=== PATIENT | male | born 1950 | race Caucasian/White ===

== ENCOUNTER 2019-10-10 14:35 | Emergency (ER) | payer MEDICARE, OTHER ==
[~2019-10-10] VITALS: Ht 182.8 cm; Wt 113.6 kg
[2019-10-10] MEDS ORDERED: ONDANSETRON 4 MG/2 ML (SDV) Z0FRAN ONE (14:46)
[2019-10-10] MEDS ORDERED: morphine INJ 10 MG/ML 1ML (SYR OR VIAL) ONE (14:46)
[2019-10-10] MEDS ORDERED: NS IV 1000 ML 1,000 ML ONE (14:46)
[2019-10-10] MEDS ORDERED: morphine INJ 10 MG/ML 1ML (SYR OR VIAL) IVP STA (14:52)
--- NOTE | 2019-10-10 14:52 | ED Abdominal Pain ---
General Chief Complaint: Abdominal/GI Problems Stated Complaint: LRQ PAIN; NAUSEA Source of Information: Patient Exam Limitations: No Limitations History of Present Illness Date Seen by Provider: Oct 10, 2019 Time Seen by Provider: 14:40 Initial Comments The patient is a 68-year-old male presents for evaluation of right lower quadrant abdominal pain as well as some right flank pain which started a few hours ago. He states that when the pain began he became nauseous and had several episodes of vomiting and felt somewhat diaphoretic. He denies any history of abdominal surgeries or kidney stones. He is alert and oriented 4, appears uncomfortable, but is in no distress at this time. He denies fevers or chills, hematemesis, urinary complaints, chest pain or shortness of breath, lightheadedness, or syncope. Timing/Duration: 1-3 Hours Severity/Quality: Severe Location: RLQ, Flank (right) Radiation: No Radiation Activities at Onset: None Associated Symptoms: Nausea/Vomiting Allergies and Home Medications Allergies Coded Allergies: No Known Drug Allergies (Unverified , 10/10/19) Patient Home Medication List Home Medication List Reviewed: Yes Review of Systems Review of Systems Constitutional: no symptoms reported EENTM: No Symptoms Reported Respiratory: No Symptoms Reported Cardiovascular: No Symptoms Reported Gastrointestinal: Abdominal Pain, Nausea, Vomiting Genitourinary: No Symptoms Reported Musculoskeletal: no symptoms reported Skin: no symptoms reported Psychiatric/Neurological: No Symptoms Reported Endocrine: No Symptoms Reported Hematologic/Lymphatic: No Symptoms Reported All Other Systems Reviewed Negative Unless Noted: Yes Past Xopzjzt-Asbbhd-Hjfyqc Hx Past Med/Social Hx: Reviewed Nursing Past Med/Soc Hx Patient Social History Recent Foreign Travel: No Contact w/Someone Who Travel: No Physical Exam Vital Signs Vital Signs - First Documented 10/10/19 14:41 Temp 36.0 Pulse 58 Resp 20 B/P (MAP) 156/79 (104) Pulse Ox 96 O2 Delivery Room Air Capillary Refill : Height/Weight/BMI Height: '" Weight: lbs. oz. 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, no motor/sensory deficits, alert, normal mood/affect, oriented x 3 Skin: normal color, warm/dry Progress/Results/Core Measures Results/Orders Lab Results Laboratory Tests Test 10/10/19 14:36 10/10/19 14:40 Range/Units Urine Color YELLOW Urine Clarity CLEAR Urine pH 5.0 5-9 Urine Specific [place] >=1.030 1.016-1.022 Urine Protein NEGATIVE NEGATIVE Urine Glucose (UA) 1+ H NEGATIVE Urine Ketones NEGATIVE NEGATIVE Urine Nitrite NEGATIVE NEGATIVE Urine Bilirubin NEGATIVE NEGATIVE Urine Urobilinogen 0.2 < = 1.0 MG/DL Urine Leukocyte Esterase NEGATIVE NEGATIVE Urine RBC (Auto) 3+ H NEGATIVE Urine RBC 10-25 H /HPF Urine WBC RARE /HPF Urine Squamous Epithelial Cells RARE /HPF Urine Crystals NONE /LPF Urine Bacteria NEGATIVE /HPF Urine Casts NONE /LPF Urine Mucus NONE /LPF Urine Culture Indicated NO White Blood Count 10.2 4.3-11.0 10^3/uL Red Blood Count 5.03 4.35-5.85 10^6/uL Hemoglobin 14.4 13.3-17.7 G/DL Hematocrit 43 40-54 % Mean Corpuscular Volume 85 80-99 FL Mean Corpuscular Hemoglobin 29 25-34 PG Mean Corpuscular Hemoglobin Concent 34 32-36 G/DL Red Cell Distribution Width 12.6 10.0-14.5 % Platelet Count 223 130-400 10^3/uL Mean Platelet Volume 10.1 7.4-10.4 FL Neutrophils (%) (Auto) 66 42-75 % Lymphocytes (%) (Auto) 24 12-44 % Monocytes (%) (Auto) 8 0-12 % Eosinophils (%) (Auto) 1 0-10 % Basophils (%) (Auto) 1 0-10 % Neutrophils # (Auto) 6.7 1.8-7.8 X 10^3 Lymphocytes # (Auto) 2.4 1.0-4.0 X 10^3 Monocytes # (Auto) 0.8 0.0-1.0 X 10^3 Eosinophils # (Auto) 0.1 0.0-0.3 10^3/uL Basophils # (Auto) 0.1 0.0-0.1 10^3/uL Sodium Level 140 135-145 MMOL/L Potassium Level 4.2 3.6-5.0 MMOL/L Chloride Level 101 98-107 MMOL/L Carbon Dioxide Level 23 21-32 MMOL/L Anion Gap 16 H 5-14 MMOL/L Blood Urea Nitrogen 21 H 7-18 MG/DL Creatinine 1.17 0.60-1.30 MG/DL Estimat Glomerular Filtration Rate > 60 BUN/Creatinine Ratio 18 Glucose Level 213 H 70-105 MG/DL Calcium Level 9.5 8.5-10.1 MG/DL Corrected Calcium 9.1 8.5-10.1 MG/DL Total Bilirubin 0.5 0.1-1.0 MG/DL Aspartate Amino Transf (AST/SGOT) 19 5-34 U/L Alanine Aminotransferase (ALT/SGPT) 19 0-55 U/L Alkaline Phosphatase 76 40-136 U/L Total Protein 7.2 6.4-8.2 GM/DL Albumin 4.5 3.2-4.5 GM/DL Amylase Level 34 25-125 U/L Lipase 33 8-78 U/L My Orders Orders - JESSICA LEROY DO Comprehensive Metabolic Panel (10/10/19 14:36) Lipase (10/10/19 14:36) Amylase (10/10/19 14:36) Ua Culture If Indicated (10/10/19 14:36) Ed Iv/Invasive Line Start (10/10/19 14:36) Cbc With Automated Diff (10/10/19 14:36) Ondansetron Injection (Zofran Injectio (10/10/19 14:46) Ns Iv 1000 Ml (Sodium Chloride 0.9%) (10/10/19 14:46) Morphine Injection (Morphine Injection (10/10/19 14:52) Ondansetron Injection (Zofran Injectio (10/10/19 15:00) Ns Iv 1000 Ml (Sodium Chloride 0.9%) (10/10/19 15:00) Morphine Injection (Morphine Injection (10/10/19 14:46) Iohexol Injection (Omnipaque 350 Mg/Ml 1 (10/10/19 15:30) Received Contrast (Hold Metformin- Contr (10/10/19 15:30) Sodium Chloride Flush (Catheter Flush Sy (10/10/19 15:30) Ns (Ivpb) (Sodium Chloride 0.9% Ivpb Bag (10/10/19 15:30) Ct Abdomen/Pelvis W Wo (10/10/19 15:31) Ketorolac Injection (Toradol Injection) (10/10/19 16:15) Fentanyl Injection (Sublimaze Injection (10/10/19 16:15) Ketorolac Injection (Toradol Injection) (10/10/19 15:55) Fentanyl Injection (Sublimaze Injection (10/10/19 15:55) Medications Given in ED Current Medications Medications Dose Ordered Sig/Olivia Route Start Time Stop Time Status Last Admin Dose Admin Fentanyl Citrate 50 mcg ONCE ONCE IVP 10/10/19 16:15 10/10/19 16:16 DC 10/10/19 16:42 50 MCG Iohexol 100 ml ONCE ONCE IV 10/10/19 15:30 10/10/19 15:31 DC 10/10/19 15:52 100 ML Ketorolac Tromethamine 30 mg ONCE ONCE IVP 10/10/19 16:15 10/10/19 16:16 DC 10/10/19 16:42 30 MG Ondansetron HCl 4 mg ONCE ONCE IVP 10/10/19 15:00 10/10/19 15:01 DC 10/10/19 14:56 4 MG Sodium Chloride 10 ml NEEDED PRN IV 10/10/19 15:30 10/10/19 15:52 10 ML Sodium Chloride 100 ml ONCE ONCE IV 10/10/19 15:30 10/10/19 15:31 DC 10/10/19 15:52 100 ML Vital Signs/I&O 10/10/19 14:41 Temp 36.0 Pulse 58 Resp 20 B/P (MAP) 156/79 (104) Pulse Ox 96 O2 Delivery Room Air Progress Progress Note : Progress Note @5344 - Case discussed with Dr. Baez (urology) who states that the patient follow-up in his office tomorrow at 11 AM and to remain nothing by mouth after midnight tonight. A KUB will be obtained prior to discharge as this was re quested by . The patient expresses verbal understanding and agreement with this plan and is stable for discharge at this time. Diagnostic Imaging Diagonstic Imaging: CT Comments [facility] [place], [place] NAME: FRANCISCA BERNARD [facility] REC#: [id number] PT STATUS: REG ER : 1950 PHYSICIAN: JESSICA LEROY DO ADMIT DATE: 10/10/19/ER FS Draft Date of Exam:10/10/19 CT ABDOMEN/PELVIS W WO EXAMINATION: CT abdomen and pelvis with and without intravenous contrast. TECHNIQUE: Precontrast acquisitions were acquired through the abdomen and pelvis. Multiple contiguous axial images were obtained through the abdomen and pelvis after the administration of intravenous contrast. All CT scans use one or more of the following dose optimizing techniques: automated exposure control, MA and/or KvP adjustment based on patient size and exam type or iterative reconstruction. HISTORY: Right lower quadrant pain and hematuria. COMPARISON: None available. FINDINGS: Limited views of the lower thorax are unremarkable. Multiple cysts are present in the liver. There are no suspicious liver lesions. There is no biliary ductal dilation. Gallbladder is normal. Pancreas is normal. Spleen is normal. Adrenal glands are normal. There is a small duodenal diverticulum. There is a small hiatal hernia. There is a 7 mm obstructing stone at the right ureteropelvic junction resulting in moderate right-sided hydroureteronephrosis. There is also fairly significant perinephric stranding on the right. There are tiny left-sided stones measuring 1-2 mm. Visualized bowel is normal in caliber without obstruction or inflammation. There is diverticulosis without diverticulitis. The appendix is normal. No free fluid or air. No abdominal or pelvic lymphadenopathy. Aorta is normal in caliber without aneurysm. There are no suspicious osseus lesions. IMPRESSION: Obstructing 7 mm stone at the right ureteropelvic junction with moderate right hydronephrosis. Dictated on workstation # [id number] Dict: 10/10/19 1603 Trans: 10/10/19 1632 [facility] [id number] Interpreted by: CHANTEL WATSON MD Electronically signed by: Departure Impression Primary Impression: Urinary tract obstruction due to kidney stone Disposition: 01 HOME, SELF-CARE Condition: Stable Departure-Patient Inst. Decision time for Depature: 16:55 Referrals: BEVERLY BAEZ MD Patient Instructions: Kidney Stones in Adults Add. Discharge Instructions: Follow-up with Dr. Baez from urology tomorrow at 11:00. He will be expecting you. Do not eat or drink anything after midnight tonight. Take the prescribed medicine as directed. Return to the ER immediately for new or worsening symptoms. Scripts Tamsulosin HCl (Flomax) 0.4 Mg Cap 0.4 MG PO DAILY for 5 Days, #5 CAP Prov: JESSICA LEROY DO 10/10/19 Ketorolac Tromethamine (Ketorolac Tromethamine) 10 Mg Tablet 10 MG PO Q6H PRN for PAIN-MODERATE (5-7) for 5 Days, #15 TAB Prov: JESSICA LEROY DO 10/10/19 Hydrocodone/Acetaminophen (Hydrocodone-Acetamin 5-325 mg) 1 Each Tablet 1 EACH PO Q4H for Pain for 5 Days, #15 TAB Prov: JESSICA LEROY DO 10/10/19 JESSICA LEROY DO Oct 10, 2019 14:52
[2019-10-10 14:53] LABS: WHITE BLOOD COUNT 10.2 10^3/uL (4.3-11.0)
[2019-10-10 14:54] LABS: BASOPHILS % (AUTO) 1 % (0-10); EOSINOPHILS % (AUTO) 1 % (0-10); HEMATOCRIT 43 % (40-54); HEMOGLOBIN 14.4 G/DL (13.3-17.7); LYMPHOCYTES # (AUTO) 2.4 X 10^3 (1.0-4.0); LYMPHOCYTES % (AUTO) 24 % (12-44); MEAN CORPUSCULAR HEMOGLOBIN 29 PG (25-34); MEAN CORPUSCULAR HGB CONC 34 G/DL (32-36); MEAN CORPUSCULAR VOLUME 85 FL (80-99); MEAN PLATELET VOLUME 10.1 FL (7.4-10.4); MONOCYTES % (AUTO) 8 % (0-12); NEUTROPHILS # (AUTO) 6.7 X 10^3 (1.8-7.8); NEUTROPHILS % (AUTO) 66 % (42-75); PLATELET COUNT 223 10^3/uL (130-400); RED CELL DISTRIBUTION WIDTH 12.6 % (10.0-14.5)
[2019-10-10 14:55] LABS: BASOPHILS # (AUTO) 0.1 10^3/uL (0.0-0.1); EOSINOPHILS # (AUTO) 0.1 10^3/uL (0.0-0.3); MONOCYTES # (AUTO) 0.8 X 10^3 (0.0-1.0)
[2019-10-10] MEDS ORDERED: ONDANSETRON 4 MG/2 ML (SDV) Z0FRAN IVP ONE (15:00)
[2019-10-10] MEDS ORDERED: NS IV 1000 ML 1,000 ML IV SCH (15:00)
[2019-10-10 15:05] LABS: BACTERIA,URINE NEGATIVE /HPF; BILIRUBIN,URINE NEGATIVE (NEGATIVE); CLARITY,URINE CLEAR; COLOR,URINE YELLOW; GLUCOSE, URINE (UA) 1+ (NEGATIVE); KETONES,URINE NEGATIVE (NEGATIVE); LEUKOCYTE ESTERASE ,URINE NEGATIVE (NEGATIVE); NITRITE,URINE NEGATIVE (NEGATIVE); PROTEIN,URINE NEGATIVE (NEGATIVE); WBC,URINE RARE /HPF
[2019-10-10 15:06] LABS: SQUAMOUS EPITHELIAL CELL,UR RARE /HPF
[2019-10-10 15:13] LABS: BUN/CREATININE RATIO 18; CARBON DIOXIDE 23 MMOL/L (21-32); CHLORIDE 101 MMOL/L (98-107); CREATININE SERUM 1.17 MG/DL (0.60-1.30); GFR ESTIMATED > 60; POTASSIUM 4.2 MMOL/L (3.6-5.0); SODIUM 140 MMOL/L (135-145)
[2019-10-10 15:14] LABS: ALANINE AMINOTRANSFERASE 19 U/L (0-55); ALKALINE PHOSPHATASE 76 U/L (40-136); BILIRUBIN,TOTAL 0.5 MG/DL (0.1-1.0); CALCIUM 9.5 MG/DL (8.5-10.1); GLUCOSE 213 MG/DL (70-105); TOTAL PROTEIN 7.2 GM/DL (6.4-8.2)
[2019-10-10 15:15] LABS: ALBUMIN 4.5 GM/DL (3.2-4.5); AMYLASE 34 U/L (25-125); LIPASE 33 U/L (8-78)
--- OUTSIDE RECORDS SUMMARY | 2019-10-10 15:19 | XMS REPORT | Continuity of Care Document ---
Demographics Preferred Language Unknown Marital Status Unknown Taoist Affiliation Unknown Race Unknown Ethnic Group Unknown Author Organization Unknown Address Unknown Phone Unavailable Allergies There is no data. Medications There is no data. Problems There is no data. Procedures There is no data. Results Test Result Range Complete urinalysis with reflex to cultu re - 10/10/19 14:36 Urine color determination YELLOW NRG Urine clarity determination CLEAR NR G Urine pH measurement by test strip 5.0 5-9 Specific gravity of urine by test strip >= 1.016-1.022 Urine protein assay by test strip, semi-quantitative NEGATIVE NEGATIVE Urine glucose detection by automated test strip 1+ NEGATIVE Erythrocytes detection in urine sediment by light micr oscopy 3+ NEGATIVE Urine ketones detection by automated test strip NE GATIVE NEGATIVE Urine nitrite detection by test strip NEGATIVE NEGATIVE Urine total bilirubin detection by test strip NEGA TIVE NEGATIVE Urine urobilinogen measurement by automated test strip (mass/volume) 0.2 mg/dL < = 1.0 Urine leukocyte esterase detection by dipstick NEG ATIVE NEGATIVE Automated urine sediment erythrocyte cou nt by microscopy (number/high power field) [HPF] NRG Automated urine sediment leukocyte count by microscopy (number/high power field) RARE NRG Bacteria detection in urine sediment by light microsco py NEGATIVE NRG Squamous epithelial cells detection in u rine sediment by light microscopy RARE NRG Crystals detection in urine sediment by light microsco py NONE NRG Casts detection in urine sediment by light microscopy NONE NRG Mucus detection in urine sediment by light microscopy NONE NRG Complete urinalysis with reflex to culture NO NRG Complete blood count (CBC) with automate d white blood cell (WBC) differential - 10/10/19 14:40 Blood leukocytes automated count (number/volume) 10.2 10*3/uL 4.3-11.0 Blood erythrocytes automated count (number/volume) 5.03 10*6/uL 4.35-5.85 Venous blood hemoglobin measurement (mass/volume) 14.4 g/dL 13.3-17.7 Blood hematocrit (volume fraction) 43 % 40-54 Automated erythrocyte mean corpuscular volume 85 [ foz_us] 80-99 Automated erythrocyte mean corpuscular h emoglobin (mass per erythrocyte) 29 pg 25-34 Automated erythrocyte mean corpuscular h emoglobin concentration measurement (mass/volume) 34 g/dL 32-36 Automated erythrocyte distribution width ratio 12. 6 % 10.0- 14.5 Automated blood platelet count (count/volume) 223 10*3/uL 130-400 Automated blood platelet mean volume measurement 10.1 [foz_us] 7.4-10.4 Automated blood neutrophils/100 leukocytes 66 % 42-75 Automated blood lymphocytes/100 leukocytes 24 % 12-44 Blood monocytes/100 leukocytes 8 % 0-12 Automated blood eosinophils/100 leukocytes 1 % 0-10 Automated blood basophils/100 leukocytes 1 % 0-10 Blood neutrophils automated count (number/volume) 6.7 10*3 1.8-7.8 Blood lymphocytes automated count (number/volume) 2.4 10*3 1.0-4.0 Blood monocytes automated count (number/volume) 0. 8 10*3 0.0-1.0 Automated eosinophil count 0.1 10*3/uL 0 .0-0.3 Automated blood basophil count (count/volume) 0.1 10*3/uL 0.0-0.1 Comprehensive metabolic panel - 10/10/19 14:40 Serum or plasma sodium measurement (moles/volume) 140 mmol/L 135-145 Serum or plasma potassium measurement (moles/volume) 4.2 mmol/L 3.6-5.0 Serum or plasma chloride measurement (moles/volume) 101 mmol/L 98-107 Carbon dioxide 23 mmol/L 21-32 Serum or plasma anion gap determination (moles/volume) 16 mmol/L 5-14 Serum or plasma urea nitrogen measurement (mass/volume ) 21 mg/dL 7-18 Serum or plasma creatinine measurement (mass/volume) 1.17 mg/dL 0.60-1.30 Serum or plasma urea nitrogen/creatinine mass ratio 18 NRG Serum or plasma creatinine measurement w ith calculation of estimated glomerular filtration rate > NRG Serum or plasma glucose measurement (mass/volume) 213 mg/dL 70-105 Serum or plasma calcium measurement (mass/volume) 9.5 mg/dL 8.5-10.1 Serum or plasma total bilirubin measurement (mass/volu me) 0.5 mg/dL 0.1-1.0 Serum or plasma alkaline phosphatase bob surement (enzymatic activity/volume) 76 U/L 40-136 Serum or plasma aspartate aminotransfera se measurement (enzymatic activity/volume) 19 U/L 5-34 Serum or plasma alanine aminotransferase measurement (enzymatic activity/volume) 19 U/L 0-55 Serum or plasma protein measurement (mass/volume) 7.2 g/dL 6.4-8.2 Serum or plasma albumin measurement (mass/volume) 4.5 g/dL 3.2-4.5 CALCIUM CORRECTED 9.1 mg/dL 8.5-10.1 Serum or plasma amylase measurement (enz ymatic activity/volume) - 10/10/19 14:40 Serum or plasma amylase measurement (enzymatic activit y/volume) 34 U/L 25-125 Lipase - 10/10/19 14:40 Lipase 33 U/L 8-78 Encounters ACCT No. Visit Date/Time Discharge Status Pt. Type Provider Facility Loc./Unit Complaint [id number] 10/10/2019 14:55:00 Document Registration
[2019-10-10] MEDS ORDERED: IOHEXOL 350 MG/ML 100 ML (OMNIPAQUE 350) VIAL IV ONE (15:30)
[2019-10-10] MEDS ORDERED: NS 100 ML (IVPB) BAG IV ONE (15:30)
[2019-10-10] MEDS ORDERED: HOLD METFORMIN - RECEIVED CONTRAST 20 ML VIAL IV SCH (15:30)
[2019-10-10] MEDS ORDERED: CATHETER FLUSH 10 ML SYR IV PRN (15:30)
[2019-10-10] MEDS ORDERED: KETOROLAC 30 MG/ML VIAL ONE (15:55)
[2019-10-10] MEDS ORDERED: fentaNYL INJECTION 100 MCG/2 ML AMP ONE (15:55)
[2019-10-10] MEDS ORDERED: fentaNYL INJECTION 100 MCG/2 ML AMP IVP ONE (16:15)
[2019-10-10] MEDS ORDERED: KETOROLAC 30 MG/ML VIAL IVP ONE (16:15)
--- NOTE | 2019-10-10 16:33 | Diagnostic Imaging Report ---
EXAMINATION: CT abdomen and pelvis with and without intravenous contrast. TECHNIQUE: Precontrast acquisitions were acquired through the abdomen and pelvis. Multiple contiguous axial images were obtained through the abdomen and pelvis after the administration of intravenous contrast. All CT scans use one or more of the following dose optimizing techniques: automated exposure control, MA and/or KvP adjustment based on patient size and exam type or iterative reconstruction. HISTORY: Right lower quadrant pain and hematuria. COMPARISON: None available. FINDINGS: Limited views of the lower thorax are unremarkable. Multiple cysts are present in the liver. There are no suspicious liver lesions. There is no biliary ductal dilation. Gallbladder is normal. Pancreas is normal. Spleen is normal. Adrenal glands are normal. There is a small duodenal diverticulum. There is a small hiatal hernia. There is a 7 mm obstructing stone at the right ureteropelvic junction resulting in moderate right-sided hydronephrosis. There is also fairly significant perinephric stranding on the right. There are tiny left-sided stones measuring 1-2 mm. Visualized bowel is normal in caliber without obstruction or inflammation. There is diverticulosis without diverticulitis. The appendix is normal. No free fluid or air. No abdominal or pelvic lymphadenopathy. Aorta is normal in caliber without aneurysm. There are no suspicious osseus lesions. IMPRESSION: Obstructing 7 mm stone at the right ureteropelvic junction with moderate right hydronephrosis. Dictated by: Dictated on workstation # [id number]
[2019-10-10] MEDS ORDERED: HYDR-83 PO (16:57)
[2019-10-10] MEDS ORDERED: KETO10TA PO (16:57)
[2019-10-10] MEDS ORDERED: TMSL.4C PO (16:57)
[2019-10-10 17:18] VITALS: BP 141/78
--- NOTE | 2019-10-10 17:24 | Diagnostic Imaging Report ---
INDICATION: Nephrolithiasis. COMPARISON: Correlation is made with CT earlier the same date. FINDINGS: There is persistent right hydroureteronephrosis with termination of opacification of the right ureter at the level of the L2-L3 disc space where a calculus was shown on earlier CT. The level of obstruction is unchanged. The left kidney is nondilated. The left ureter is opacified and unremarkable. IMPRESSION: Right ureteral obstruction with upstream hydronephrosis unchanged from earlier CT or a calculus was noted. Dictated by: Dictated on workstation # [id number]
== END 2019-10-10 17:18 | disposition home or self-care (01) ==
LOC: ER FS 14:37
DX: N20.0 Calculus of kidney (principal); N13.8 Other obstructive and reflux uropathy
CPT/HCPCS: 36415; 74018; 74178; 80053; 81000; 82150; 83690; 85025

== ENCOUNTER → 2019-10-11 | Outpatient (CLI) | payer MEDICARE, OTHER ==
[~2019-10-11] MED LIST: ATOR20TA66 PO; FINA5TAB6 PO; HYDR-83 PO; KETO10TA PO; METF-399 PO; NITR-65 PO; TMSL.4C PO; TRAM50TA3 PO
--- NOTE | 2019-10-11 11:18 | Diagnostic Imaging Report ---
INDICATION: Follow-up of the right UPJ stone. FINDINGS: There is an 8 mm faintly calcified stone again present at the UPJ correlating with yesterday's KUB. This is unchanged in position. This is causing moderate hydronephrosis. There continues to be faint opacification of the right renal calyces. There is a small amount of contrast in the lower pole calyx left kidney. Tiny calcifications in the left renal calyces noted on CT scan yesterday are not visible on KUB. No calcifications are seen overlying the pelvis. IMPRESSION: 1. 8 mm stone at the UPJ of the right ureter does not appear to have changed significantly in position. Dictated by: Dictated on workstation # [id number]
== END ==
LOC: RAD 10:20
PROVIDERS: ATTEND Urology
DX: N20.1 Calculus of ureter (principal)
CPT/HCPCS: 74018

== ENCOUNTER 2019-10-14 14:07 | Outpatient (RCR) | payer MEDICARE, OTHER ==
[~2019-10-14] VITALS: Ht 182 cm; Wt 113.6 kg
[~2019-10-14 14:07] MED LIST changes: -NITR-65 PO; -TRAM50TA3 PO
[2019-10-15] MEDS ORDERED: NITR-65 PO (10:46)
[2019-10-15] MEDS ORDERED: TRAM50TA3 PO (10:46)
== END 2019-10-14 14:09 | disposition home or self-care (01) ==
LOC: PREOP 14:07
PROVIDERS: ATTEND Urology
DX: Z01.812 Encounter for preprocedural laboratory examination (principal); N20.1 Calculus of ureter; Z11.59 Encounter for screening for other viral diseases
CPT/HCPCS: 87635

== ENCOUNTER 2019-10-15 08:04 | Day surgery (SDC) | payer MEDICARE, OTHER ==
[2019-10-15] VITALS (10 sets, daily range): BP systolic 112–171; BP diastolic 69–93
[~2019-10-15] VITALS: Ht 182 cm; Wt 113.6 kg
[2019-10-15] MEDS ORDERED: cefTRIAXone FOR IV USE 1,000 MG in WATER (STERILE) FOR INJECTION 10 ML IV ONE (08:15)
--- NOTE | 2019-10-15 08:18 | Progress Note-Pre Operative ---
Pre-Operative Progress Note H&P Reviewed The H&P was reviewed, patient examined and no changes noted. Date Seen by Provider: October 15, 2019 Time Seen by Provider: 08:17 Date H&P Reviewed: October 15, 2019 Time H&P Reviewed: 08:17 Pre-Operative Diagnosis: RT PROXIMAL URETERAL STONE BEVERLY BAEZ MD October 15, 2019 08:18
[2019-10-15] MEDS: LACTATED RINGERS 1,000 ML IV PRN ×2 (08:47→10:40)
--- OUTSIDE RECORDS SUMMARY | 2019-10-15 08:59 | XMS REPORT | Continuity of Care Document ---
Author Organization Unknown Address Unknown Phone Unavailable Allergies Active Description Code Type Severity Reaction Onset Reported/Identified Relationship to Patient Clinical Status Yes No Known Drug Allergies [id number] Drug Allergy Unknown N/A 10/14/2019 Medications There is no data. Problems Date Dx Coded Attending Type Code Diagnosis Diagnosed By 10/10/2019 RAD LOPEZ DO Ot N13. 8 OTHER OBSTRUCTIVE AND REFLUX UROPATHY 10/10/2019 RAD LOPEZ DO Ot N20. 0 CALCULUS OF KIDNEY 10/10/2019 RAD LOPEZ DO Ot R10. 31 RIGHT LOWER QUADRANT PAIN 10/11/2019 RAD LOPEZ DO Ot N13. 8 OTHER OBSTRUCTIVE AND REFLUX UROPATHY 10/11/2019 RAD LOPEZ DO Ot N20. 0 CALCULUS OF KIDNEY 10/11/2019 RAD LOPEZ DO Ot R10. 31 RIGHT LOWER QUADRANT PAIN 10/14/2019 SASHA ROMAN, BEVERLY Brown Ot N20.1 CALCULUS OF URETER Procedures There is no data. Results Test [...] - 10/10/19 14:40 Lipase 33 U/L 8-78 Coronavirus SARS-CoV-2 SO 2018 - 0 13:30 Coronavirus Ab [Units/volume] in Serum Negative Negative Encounters ACCT No. Visit Date/Time Discharge Status Pt. Type Provider Facility Loc./Unit Complaint [id number] 10/14/2019 14:07:00 020 14:09:00 DIS Outpatient BEVERLY BAEZ MD [facility] PREOP RIGHT URETERAL STONE [id number] 10/11/2019 10:20:00 020 23:59:59 CLS Outpatient SASHA ROMAN, BEVERLY Brown [facility] RAD RT UPJ STONE [id number] 10/10/2019 14:37:00 020 17:18:00 DIS Emergency RAD LOPEZ DO [facility] ER FS LRQ PAIN; NAUSEA [id number] 10/15/2019 13:15:00 P EN Preadmit SASHA ROMAN, BEVERLY Brown [facility] SDC RIGHT URETERAL STONE
[2019-10-15] MEDS ORDERED: KETOROLAC 30 MG/ML VIAL ONE (09:00)
[2019-10-15] MEDS ORDERED: proPOfol 200 MG/20 ML (DIPRIVAN) VIAL IV ONE (09:00)
[2019-10-15] MEDS ORDERED: LIDOCAINE PF 2% 5 ML (XYLOCAINE) VIAL ONE (09:00)
[2019-10-15] MEDS ORDERED: SEVOFLURANE (ULTANE) 15 ML INHAL SOLN ONE (09:00)
[2019-10-15] MEDS ORDERED: FUROSEMIDE 40 MG/4 ML INJ (LASIX) ONE (09:00)
[2019-10-15] MEDS ORDERED: ONDANSETRON 4 MG/2 ML (SDV) Z0FRAN ONE (09:00)
--- NOTE | 2019-10-15 09:00 | Diagnostic Imaging Report ---
INDICATION: Evaluation prior to extracorporeal shock wave lithotripsy, nephrolithiasis. TECHNIQUE: Single supine view of the abdomen 8:36 AM. CORRELATION STUDY: 10/11/2019. FINDINGS: Approximately 7 mm in length calcification interposed between the L3 and L4 transverse processes is present. This appears slightly more inferior, approximately one disc space in this location from prior study. Overlying bowel gas pattern is unremarkable without evidence for obstruction. IMPRESSION: Very slight inferior migration of an approximately 7 mm stone, likely in the proximal right ureter. Dictated by: Dictated on workstation # [id number]
[2019-10-15] MEDS ORDERED: MIDAZOLAM 2 MG/2 ML (VERSED) VIAL ONE (09:01)
[2019-10-15] MEDS ORDERED: fentaNYL INJECTION 100 MCG/2 ML AMP ONE (09:01)
--- NOTE | 2019-10-15 09:22 | Progress Note-Post Operative ---
Post-Operative Progess Note Surgeon (s)/Drill Doctor (s) Surgeon BEVERLY BAEZ MD Drill Doctor: NONE Pre-Operative Diagnosis RT PROXIMAL URETERAL STONE Post-Operative Diagnosis SAME Procedure & Operative Findings Date of Procedure 10/15/19 Procedure Performed/Findings RT ESWL Anesthesia Type GENERAL Estimated Blood Loss Estimated blood loss (mL): NONE Specimens/Packing Specimens Removed NONE Packing: NONE BEVERLY BAEZ MD October 15, 2019 09:22
--- NOTE | 2019-10-15 09:27 | Discharge Inst-Urology ---
Discharge Inst-Urology Reconcile Patient Problems Problems Reviewed?: Yes Final Diagnosis RT URETERAL STONE Patient Instructions/Follow Up Plan/Assessment/Instructions Please make appointment to been seen in office Friday 10/27, KUB prior to it. KUB on way home. Post ESWL instructions Increase oral fluids for 48 hours and then as needed. Diet and Activity as tolerated. If questions or concerns contact your physician Or seek help at emergency department. BEVERLY BAEZ MD October 15, 2019 09:27
[2019-10-15] MEDS ORDERED: ONDANSETRON 4 MG/2 ML (SDV) Z0FRAN IVP PRN ×2 (10:15)
[2019-10-15] MEDS ORDERED: morphine INJ 10 MG/ML 1ML (SYR OR VIAL) IVP ONE ×2 (10:15)
[2019-10-15] MEDS ORDERED: NITR-65 PO (10:46)
[2019-10-15] MEDS ORDERED: TRAM50TA3 PO (10:46)
--- NOTE | 2019-10-15 11:56 | Diagnostic Imaging Report ---
INDICATION: Post extracorporeal shock wave lithotripsy. TECHNIQUE: Single supine view of the abdomen 11:24 AM CORRELATION STUDY: 10/15/2019 FINDINGS: No appreciable change approximately 7 mm calcification interposed between the right L3-L4 transverse processes. Density overlies the right L3 transverse process likely reflecting transverse process itself. No additional calcifications demonstrated. Overlying bowel gas pattern is generally unremarkable. IMPRESSION: 1. Relatively stable appearance of an approximately 7 mm calcification interposed within the right L3 and L4 transverse processes. Dictated by: Dictated on workstation # [id number]
--- NOTE | 2019-10-15 14:04 | OPERATIVE REPORT ---
DATE OF SERVICE: 10/15/2019 PREOPERATIVE DIAGNOSIS: Right proximal ureteral stone. POSTOPERATIVE DIAGNOSIS: Right proximal ureteral stone. OPERATION PERFORMED: Right ESWL. SURGEON: Ancelmo Baez MD ANESTHESIA: General. COMPLICATIONS: None. DESCRIPTION OF PROCEDURE: Under satisfactory general anesthesia, the patient in supine position on the ESWL table, the right ureteral stone was localized. Shocks were delivered at kV of 6. Total of 3000 shocks completely fragmented the stone that was not visualized anymore. The patient received 40 mg of Lasix and 30 mg of Toradol IV at the end of the procedure. He tolerated the procedure and anesthesia well and was sent to recovery room in stable condition. Job ID: [id number] DocumentID: [id number] Dictated Date: 10/15/2019 09:49:51 Cash Processing Specialist Date: 10/15/2019 14:03:35 Dictated By: ANCELMO BAEZ MD
--- NOTE | 2019-10-15 14:42 | Anesthesia-General Post-Op ---
General Patient Condition Mental Status/LOC: Same as Preop Cardiovascular: Satisfactory Nausea/Vomiting: Absent Respiratory: Satisfactory Pain: Controlled Complications: Absent Post Op Complications Complications None Follow Up Care/Instructions Patient Instructions None needed. Anesthesia/Patient Condition Patient Condition Patient was seen this morning after the procedure and he was doing well, no complaints, stable vital signs, no apparent adverse anesthesia problems. CHAIM PEREIRA DO October 15, 2019 14:42
== END 2019-10-15 12:05 | disposition home or self-care (01) ==
LOC: SDC 08:04
PROVIDERS: ATTEND Urology
DX: N20.1 Calculus of ureter (principal); N40.1 Benign prostatic hyperplasia with lower urinary tract symptoms; N13.8 Other obstructive and reflux uropathy; E78.5 Hyperlipidemia, unspecified; E11.9 Type 2 diabetes mellitus without complications; Z79.891 Long term (current) use of opiate analgesic; Z79.899 Other long term (current) drug therapy; Z79.84 Long term (current) use of oral hypoglycemic drugs
CPT/HCPCS: 74018; 82962; 87081

== ENCOUNTER → 2019-10-28 | Outpatient (CLI) | payer MEDICARE, OTHER ==
[~2019-10-28] MED LIST changes: +NITR-65 PO; +TRAM50TA3 PO
--- NOTE | 2019-10-28 15:06 | Diagnostic Imaging Report ---
INDICATION: Status post lithotripsy. TIME OF EXAM: 02:45 p.m. COMPARISON: Correlation is made with prior radiograph from 10/15/2019. FINDINGS: Previously noted calculus projected between the right L3 and L4 transverse process is no longer visualized at this location. There has been probable migration of the calculus distally. There is a calcific density overlying the right sacrum. No other radiopaque urinary tract calculi are seen. Bowel gas pattern is unremarkable. IMPRESSION: Apparent migration of previously noted proximal right ureteric calculus. This now appears to overlie the right sacrum. Dictated by: Dictated on workstation # [id number]
== END ==
LOC: RAD 14:24
PROVIDERS: ATTEND Urology
DX: N20.1 Calculus of ureter (principal)
CPT/HCPCS: 74018

== ENCOUNTER 2019-11-06 14:49 | Emergency (ER) | payer MEDICARE, OTHER ==
[~2019-11-06] VITALS: Ht 182.8 cm; Wt 112.8 kg
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
[2019-11-06] MEDS ORDERED: TETANUS,DIPTH,PERTUSS P/F (BOOSTRIX) 0.5 ML VIAL IM ONE (15:00)
[2019-11-06] MEDS ORDERED: LIDOCAINE/EPI 2% 1:100,00 (XYLOCAINE) 20 ML VIAL INJ ONE (15:00)
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
[2019-11-06 15:41] VITALS: BP 138/74
--- OUTSIDE RECORDS SUMMARY | 2019-11-06 18:33 | XMS REPORT | Continuity of Care Document ---
Author Organization Unknown Address Unknown Phone Unavailable Allergies Active Description Code Type Severity Reaction Onset Reported/Identified Relationship to Patient Clinical Status Yes No Known Drug Allergies [id number] Drug Allergy Unknown N/A 10/14/2019 Medications There is no data. Problems Date Dx Coded Attending Type Code Diagnosis Diagnosed By 05/11/1408 BEVERLY BAEZ MD Ot N20.1 CALCULUS OF URETER 05/11/1408 BEVERLY BAEZ MD Ot Z01.8 12 ENCOUNTER FOR PREPROCEDURAL LABORATORY E 05/11/1408 BEVERLY BAEZ MD Ot Z11.5 9 ENCOUNTER FOR SCREENING FOR OTHER VIRAL 10/10/2019 RAD LOPEZ DO B Ot N13. 8 OTHER OBSTRUCTIVE AND REFLUX UROPATHY 10/10/2019 JESSICA JEAN-BAPTISTE RAD B Ot N20. 0 CALCULUS OF KIDNEY 10/10/2019 JESSICA DO, RAD B Ot R10. 31 RIGHT LOWER QUADRANT PAIN 10/11/2019 RAD LOPEZ DO B Ot N13. 8 OTHER OBSTRUCTIVE AND REFLUX UROPATHY 10/11/2019 JESSICA DO, RAD B Ot N20. 0 CALCULUS OF KIDNEY 10/11/2019 HOLLI LOPEZ DOORD B Ot R10. 31 RIGHT LOWER QUADRANT PAIN 10/14/2019 BEVERLY BAEZ MD Ot N20.1 CALCULUS OF URETER 10/14/2019 BEVERLY BAEZ MD Ot Z01.8 12 ENCOUNTER FOR PREPROCEDURAL LABORATORY E 10/14/2019 BEVERLY BAEZ MD Ot Z11.5 9 ENCOUNTER FOR SCREENING FOR OTHER VIRAL 10/14/2019 BEVERLY BAEZ MD Ot N20.1 CALCULUS OF URETER 10/15/2019 BEVERLY BAEZ MD Ot E11.9 TYPE 2 DIABETES MELLITUS WITHOUT COMPLIC 10/15/2019 BEVERLY BAEZ MD Ot E78.5 HYPERLIPIDEMIA, UNSPECIFIED 10/15/2019 BEVERLY BAEZ MD Ot N13.8 OTHER OBSTRUCTIVE AND REFLUX UROPATHY 10/15/2019 BEVERLY BAEZ MD Ot N20.1 CALCULUS OF URETER 10/15/2019 BEVERLY BAEZ MD Ot N40.1 BENIGN PROSTATIC HYPERPLASIA WITH LOWER 10/15/2019 BEVERLY BAEZ MD, Ot Z79.8 4 HYDRAULIC CONTROLS TECHNICIAN (CURRENT) USE OF ORAL HYPOGLYC 10/15/2019 BEVERLY BAEZ MD Ot Z79.8 91 CARE HOME (CURRENT) USE OF OPIATE ANALGE 10/15/2019 BEVERLY BAEZ MD Ot Z79.8 99 OTHER HYDRAULIC CONTROLS TECHNICIAN (CURRENT) DRUG THERAPY 10/18/2019 RAD LOPEZ DO B Ot N13. 8 OTHER OBSTRUCTIVE AND REFLUX UROPATHY 10/18/2019 RAD LOPEZ DO B Ot N20. 0 CALCULUS OF KIDNEY 10/18/2019 RAD LOPEZ DO B Ot R10. 31 RIGHT LOWER QUADRANT PAIN 10/18/2019 BEVERLY BAEZ MD Ot E11.9 TYPE 2 DIABETES MELLITUS WITHOUT COMPLIC 10/18/2019 BEVERLY BAEZ MD Ot E78.5 HYPERLIPIDEMIA, UNSPECIFIED 10/18/2019 BEVERLY BAEZ MD Ot N13.8 OTHER OBSTRUCTIVE AND REFLUX UROPATHY 10/18/2019 BEVERLY BAEZ MD Ot N20.1 CALCULUS OF URETER 10/18/2019 BEVERLY BAEZ MD Ot N40.1 BENIGN PROSTATIC HYPERPLASIA WITH LOWER 10/18/2019 BEVERLY BAEZ MD Ot Z79.8 4 HYDRAULIC CONTROLS TECHNICIAN (CURRENT) USE OF ORAL HYPOGLYC 10/18/2019 BEVERLY BAEZ MD Ot Z79.8 91 CARE HOME (CURRENT) USE OF OPIATE ANALGE 10/18/2019 BEVERLY BAEZ MD Ot Z79.8 99 OTHER CARE HOME (CURRENT) DRUG THERAPY 10/21/2019 BEVERLY BAEZ MD Ot E11.9 TYPE 2 DIABETES MELLITUS WITHOUT COMPLIC 10/21/2019 BEVERLY BAEZ MD Ot E78.5 HYPERLIPIDEMIA, UNSPECIFIED 10/21/2019 BEVERLY BAEZ MD Ot N13.8 OTHER OBSTRUCTIVE AND REFLUX UROPATHY 10/21/2019 BEVERLY BAEZ MD Ot N20.1 CALCULUS OF URETER 10/21/2019 BEVERLY BAEZ MD Ot N40.1 BENIGN PROSTATIC HYPERPLASIA WITH LOWER 10/21/2019 BEVERLY BAEZ MD, Ot Z79.8 4 CARE HOME (CURRENT) USE OF ORAL HYPOGLYC 10/21/2019 BEVERLY BAEZ MD, Ot Z79.8 91 CARE HOME (CURRENT) USE OF OPIATE ANALGE 10/21/2019 BEVERLY BAEZ MD, Ot Z79.8 99 OTHER CARE HOME (CURRENT) DRUG THERAPY 10/28/2019 BEVERLY BAEZ MD Ot N20.1 CALCULUS OF URETER 10/29/2019 BEVERLY BAEZ MD, Ot N20.1 CALCULUS OF URETER 10/31/2019 BEVERLY BAEZ MD, Ot N20.1 CALCULUS OF URETER Procedures There [...] Coronavirus Ab [Units/volume] in Serum Negative Negative Capillary blood glucose measurement by g lucometer (mass/volume) - 10/15/19 08:18 Capillary blood glucose measurement by glucometer (mas s/volume) 161 mg/dL 70-110 Methicillin resistant Staphylococcus aur eus (MRSA) screening culture - 10/15/19 08:35 Methicillin resistant Staphylococcus aureus (MRSA) scr eening culture NEG NRG Encounters ACCT No. Visit Date/Time Discharge Status Pt. Type Provider Facility Loc./Unit Complaint [id number] 10/28/2019 14:24:00 23:59:59 CLS Outpatient BEVERLY BAEZ MD [facility] RAD URETERAL STONE [id number] 10/15/2019 08:04:00 12:05:00 DIS Outpatient BEVERLY BAEZ MD [facility] SDC RIGHT URETERAL STONE [id number] 10/14/2019 14:07:00 14:09:00 DIS Outpatient BEVERLY BAEZ MD [facility] PREOP RIGHT URETERAL STONE [id number] 10/11/2019 10:20:00 23:59:59 CLS Outpatient BEVERLY BAEZ MD [facility] RAD RT UPJ STONE [id number] 10/10/2019 14:37:00 17:18:00 DIS Emergency RAD LOPEZ DO [facility] ER FS LRQ PAIN; NAUSEA
== END 2019-11-06 15:30 | disposition home or self-care (01) ==
LOC: EDUNIT# 14:49 → ER FS 14:51
DX: S09.90XA Unspecified injury of head, initial encounter (principal); S19.9XXA Unspecified injury of neck, initial encounter; S01.81XA Laceration without foreign body of other part of head, initial encounter; E78.00 Pure hypercholesterolemia, unspecified; E11.9 Type 2 diabetes mellitus without complications; Z79.84 Long term (current) use of oral hypoglycemic drugs; Z23 Encounter for immunization; W55.22XA Struck by cow, initial encounter
CPT/HCPCS: 12011; 70450; 90471; 90715

== ENCOUNTER → 2019-11-22 | Outpatient (CLI) | payer MEDICARE, OTHER ==
[~2019-11-22] MED LIST changes: +SULF1TAB35 PO; +TRM50T PO
--- NOTE | 2019-11-22 08:49 | Diagnostic Imaging Report ---
PROCEDURE: CT urinary tract, rule out kidney stone. TECHNIQUE: Multiple contiguous axial images were obtained through the abdomen and pelvis without the use of intravenous contrast. Auto Exposure Controls were utilized during the CT exam to meet ALARA standards for radiation dose reduction. INDICATION: Intermittent right flank pain and right lower quadrant abdominal pain for one week. Patient does have a history of kidney stones. Comparison is made with prior CT from 10/10/2019. FINDINGS: The lung bases are clear. Multiple circumscribed hepatic low-attenuation lesions are again noted suggestive of cysts. Gallbladder is contracted. No biliary ductal dilatation is seen. The pancreas and spleen are unremarkable. No adrenal mass is detected. The right kidney does demonstrate moderate hydroureteronephrosis. The dilated right ureter is traced into the pelvis where there is a 7 mm calculus in the distal right ureter 2 to 3 cm proximal to the UVJ. This may represent previously described calculus located on the right at the level of the UPJ in September. Tiny nonobstructing calculi in the left kidney are seen. No left-sided ureteral calculi or evidence of bladder calculi are seen. There are probable renal sinus cysts bilaterally. Aorta is partially calcified but non-aneurysmal. The small and large bowel loops are normal caliber. Appendix is unremarkable. There is no free fluid or fluid collection. Prostate is unremarkable. IMPRESSION: 1. 7 mm distal right ureteric calculus producing moderate hydroureteronephrosis. 2. Tiny nonobstructing left renal calculus. 3. Hepatic cysts. Dictated by: Dictated on workstation # [id number]
--- NOTE | 2019-11-22 08:50 | Diagnostic Imaging Report ---
EXAMINATION: Abdomen 1 view HISTORY: Right flank pain COMPARISON: 10/28/2019 FINDINGS: There is a 7 mm calcification in the pelvis. Although this is in a slightly different location, it may represent the same abnormality seen on prior film due to differences in obliquity. Other calcifications in the pelvis likely represent phleboliths. No dilated bowel is seen. No free air. IMPRESSION: 1. Calcification in the pelvis measuring 7 mm is likely unchanged from prior exam and may represent a phlebolith or distal ureteral stone. Dictated by: Dictated on workstation # [id number]
== END ==
LOC: RAD FS 07:52
PROVIDERS: ATTEND Urology
DX: N13.2 Hydronephrosis with renal and ureteral calculous obstruction (principal); K76.89 Other specified diseases of liver
CPT/HCPCS: 74018; 74176

== ENCOUNTER 2019-11-25 05:39 | Outpatient (RCR) | payer MEDICARE ==
[~2019-11-25] VITALS: Ht 182 cm; Wt 113.6 kg
[~2019-11-25 05:39] MED LIST changes: -SULF1TAB35 PO; -TRM50T PO
== END 2019-11-25 15:11 | disposition home or self-care (01) ==
LOC: PREOP 05:39
PROVIDERS: ATTEND Urology
DX: Z01.818 Encounter for other preprocedural examination (principal); Z11.59 Encounter for screening for other viral diseases
CPT/HCPCS: 87635

== ENCOUNTER 2019-11-27 06:18 | Day surgery (SDC) | payer MEDICARE ==
[2019-11-27] VITALS (10 sets, daily range): BP systolic 129–152; BP diastolic 83–96
[~2019-11-27] VITALS: Ht 182 cm; Wt 113.6 kg
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
[2019-11-27] MEDS ORDERED: ONDANSETRON 4 MG/2 ML (SDV) Z0FRAN ONE ×2 (06:51→06:56)
[2019-11-27] MEDS ORDERED: proPOfol 200 MG/20 ML (DIPRIVAN) VIAL IV ONE ×2 (06:51→06:56)
[2019-11-27] MEDS ORDERED: SEVOFLURANE (ULTANE) 15 ML INHAL SOLN ONE ×3 (06:51→09:31)
[2019-11-27] MEDS ORDERED: DEXAMETHASONE 10 MG/ML (DECADRON) 1 ML VIAL ONE ×2 (06:51→06:56)
[2019-11-27] MEDS ORDERED: ROCURONIUM 10 MG/ML 5 ML SYRINGE IV ONE ×2 (06:51→06:56)
[2019-11-27] MEDS ORDERED: fentaNYL INJECTION 100 MCG/2 ML AMP ONE (06:52)
[2019-11-27] MEDS ORDERED: LIDOCAINE PF 2% 5 ML (XYLOCAINE) VIAL ONE (06:57)
[2019-11-27] MEDS ORDERED: MIDAZOLAM 2 MG/2 ML (VERSED) VIAL ONE (06:58)
[2019-11-27] MEDS ORDERED: LACTATED RINGERS 1,000 ML IV PRN (06:59)
[2019-11-27] MEDS ORDERED: cefTRIAXone 1,000 MG IV (ROCEPHIN) VIAL ONE (06:59)
[2019-11-27] MEDS ORDERED: cefTRIAXone FOR IV USE 1,000 MG in WATER (STERILE) FOR INJECTION 10 ML IV ONE (07:00)
[2019-11-27] MEDS ORDERED: WATER (STERILE) FOR INJECTION 10 ML ONE (07:00)
[2019-11-27] MEDS ORDERED: CATHETER FLUSH 10 ML SYR IV PRN (07:15)
--- NOTE | 2019-11-27 07:16 | Progress Note-Pre Operative ---
Pre-Operative Progress Note H&P Reviewed The H&P was reviewed, patient examined and no changes noted. Date Seen by Provider: Nov 27, 2019 Time Seen by Provider: 07:16 Date H&P Reviewed: Nov 27, 2019 Time H&P Reviewed: 07:16 Pre-Operative Diagnosis: RT DISTAL URETERAL STONE BEVERLY BAEZ MD Nov 27, 2019 07:16
--- NOTE | 2019-11-27 07:27 | Diagnostic Imaging Report ---
EXAM: ABDOMEN/KUB 1VIEW INDICATION: Right ureteral stone. COMPARISON: CT abdomen pelvis without contrast 11/22/2019. FINDINGS: 0.7 cm calcification in the right pelvis likely corresponds to the right ureteral stone seen on the prior CT. No appreciable movement. No other suspicious radiopaque foreign bodies. Nonspecific bowel gas pattern. IMPRESSION: Stable 0.7 cm calcification in the region of the distal right ureter. Dictated by: Dictated on workstation # [id number]
--- NOTE | 2019-11-27 08:31 | Progress Note-Post Operative ---
Post-Operative Progess Note Surgeon (s)/Mri Specialist (s) Surgeon BEVERLY BAEZ MD Mri Specialist: NONE Pre-Operative Diagnosis RT DISTAL URETERAL STONE Post-Operative Diagnosis SAME Procedure & Operative Findings Date of Procedure 11/27/19 Procedure Performed/Findings RT URETEROSCOPY AND RT ESWL Anesthesia Type GENERAL Estimated Blood Loss Estimated blood loss (mL): NONE Specimens/Packing Specimens Removed NONE Packing: NONE BEVERLY BAEZ MD Nov 27, 2019 08:31
--- NOTE | 2019-11-27 08:34 | Discharge Inst-Urology ---
Discharge Inst-Urology Reconcile Patient Problems Problems Reviewed?: Yes Final Diagnosis RT DISTAL URETERAL STONE Patient Instructions/Follow Up Plan/Assessment/Instructions Please make appointment to been seen in office Friday 12/08, KUB prior to it KUB on way home Post ESWL instructions Increase oral fluids for 48 hours and then as needed. Diet and Activity as tolerated. If questions or concerns contact your physician Or seek help at emergency department. BEVERLY BAEZ MD Nov 27, 2019 08:34
[2019-11-27] MEDS ORDERED: GLYCOPYRROLATE 0.2 MG/ML (ROBINUL) 2 ML VIAL ONE (08:46)
[2019-11-27] MEDS ORDERED: NEOSTIGMINE 3 MG/3 ML VIAL ONE (08:46)
[2019-11-27] MEDS ORDERED: KETOROLAC 30 MG/ML VIAL ONE (09:12)
[2019-11-27] MEDS ORDERED: FUROSEMIDE 40 MG/4 ML INJ (LASIX) ONE (09:12)
[2019-11-27] MEDS ORDERED: SULF1TAB35 PO (09:25)
[2019-11-27] MEDS ORDERED: TRM50T PO (09:25)
[2019-11-27] MEDS ORDERED: TMSL.4C PO (09:27)
[2019-11-27] MEDS ORDERED: ONDANSETRON 4 MG/2 ML (SDV) Z0FRAN IVP PRN (09:30)
[2019-11-27] MEDS ORDERED: HYDROmorphone 2 MG/ML VIAL (DILAUDID) IV ONE (09:30)
--- NOTE | 2019-11-27 11:17 | Diagnostic Imaging Report ---
INDICATION: Post extracorporal shockwave lithotripsy, right ureteral stone. TECHNIQUE: Two supine views of the abdomen at 11:07 AM. CORRELATION STUDY: 11/27/2019. FINDINGS: A moderate amount of overlying bowel gas and stool does obscure detail for calcification. The bowel gas pattern appears to be nonobstructed. The previously noted approximately 7 mm in length calcification in the right hemipelvis appears relatively static in position and likely remaining within the distal right ureter. Prominent degenerative change about the lumbar spine. Rather prominent osteophyte along the right aspect at the L2-L3 level. IMPRESSION: The 7 mm calcification in the right hemipelvis appears relatively stable in position, likely remaining in the distal right ureter. Dictated by: Dictated on workstation # [id number]
--- NOTE | 2019-11-27 11:49 | OPERATIVE REPORT ---
DATE OF SERVICE: 11/27/2019 PREOPERATIVE DIAGNOSIS: Right distal ureteral stone. POSTOPERATIVE DIAGNOSIS: Right distal ureteral stone. OPERATION PERFORMED: Right ureteroscopy and right ESWL. SURGEON: Ancelmo Baez MD ANESTHESIA: General. COMPLICATIONS: None. DESCRIPTION OF PROCEDURE: Under satisfactory general anesthesia, the patient in lithotomy position on the cystoscopy table, genitalia were prepped and draped in the usual sterile fashion. Cystoscope was introduced under vision. The anterior urethra was normal. The prostate was nonobstructing. Bladder neck was open. The bladder was normal except for a kind of a sluggish efflux on the right ureteral orifice. Using the foroblique lens, I dilated the right ureteral orifice intramural portion to accommodate a 6.9 Tajik semirigid ureteroscope; however, I could not get to the level of the stone because of some curvature of the ureter, so I discontinued further attempt and moved the patient to the ESWL table supine. The stone was localized, and shocks were delivered at kV of 10 and 11. A total of 3500 shocks showed good fragmentation and layering of the stone. The patient received 40 mg of Lasix and 30 mg of Toradol IV at the end of the procedure. He tolerated the procedure and anesthesia well and was sent to recovery room in stable condition. Job ID: [id number] DocumentID: [id number] Dictated Date: 11/27/2019 09:08:35 Speeder Worker Date: 11/27/2019 11:49:06 Dictated By: ANCELMO BAEZ MD
--- NOTE | 2019-11-28 14:49 | Anesthesia-General Post-Op ---
General Patient Condition Mental Status/LOC: Same as Preop Cardiovascular: Satisfactory Nausea/Vomiting: Absent Respiratory: Satisfactory Pain: Controlled Complications: Absent Post Op Complications Complications None Follow Up Care/Instructions Patient Instructions None needed. Anesthesia/Patient Condition Patient Condition Patient is doing well, no complaints, stable vital signs, no apparent adverse anesthesia problems. No complications reported per nursing. D/C home per [facility] [place] Criteria: Yes YAMILET SHAFER CRNA Nov 28, 2019 14:49
== END 2019-11-27 11:10 | disposition home or self-care (01) ==
LOC: SDC 06:18
PROVIDERS: ATTEND Urology
DX: N20.1 Calculus of ureter (principal); E11.9 Type 2 diabetes mellitus without complications; E78.5 Hyperlipidemia, unspecified; Z79.84 Long term (current) use of oral hypoglycemic drugs; Z79.899 Other long term (current) drug therapy; Z87.891 Personal history of nicotine dependence
CPT/HCPCS: 74018; 76000; 82962; 87081

== ENCOUNTER → 2019-12-09 | Outpatient (CLI) | payer MEDICARE ==
[~2019-12-09] MED LIST changes: +SULF1TAB35 PO; +TRM50T PO
--- NOTE | 2019-12-09 15:47 | Diagnostic Imaging Report ---
INDICATION: Ureteral calculus KUB 3:29 PM There is a 6.5 mm curvilinear calculus in the distal right ureter. This is unchanged in appearance or position compared to CT dated 11/22/2019. Bowel gas pattern is normal. IMPRESSION: No change in the distal right ureteral calculus. Dictated by: Dictated on workstation # [id number]
== END ==
LOC: RAD 14:57
PROVIDERS: ATTEND Urology
DX: N20.1 Calculus of ureter (principal)
CPT/HCPCS: 74018

== ENCOUNTER 2022-08-12 10:29 | Emergency (ER) | payer MEDICARE, OTHER ==
[~2022-08-12] VITALS: Ht 182.9 cm; Wt 108.9 kg
[~2022-08-12 10:29] MED LIST changes: +ACHD5005 PO; +DICY20TA PO; -HYDR-83 PO; +ONDA4TAB11 PO; -SULF1TAB35 PO; +SULF1TAB38 PO
[2022-08-12 10:34] VITALS: BP 163/94
--- NOTE | 2022-08-12 10:39 | ED Lower Extremity ---
General Chief Complaint: Lower Extremity Stated Complaint: RT ANKLE PAIN Source: patient Exam Limitations: no limitations History of Present Illness Date Seen by Provider: Aug 12, 2022 Time Seen by Provider: 10:30 Initial Comments Patient is a 71-year-old male who presents with right ankle pain upon waking this morning. Denies repetitive strain injury or trauma. Denies redness, fever, warmth history of cellulitis, or gouty arthritis. Pain moderate to severe and is worse and only partially improved for rest. Onset: just prior to arrival Severity: moderate Pain/Injury Location: right ankle, right heel Method of Injury: other Modifying Factors: Improves With Other Allergies and Home Medications Allergies Coded Allergies: No Known Drug Allergies (Unverified , 10/14/19) Patient Home Medication List Home Medication List Reviewed: Yes Atorvastatin Calcium (Atorvastatin Calcium) 20 Mg Tablet, 10 MG PO DAILY, (Reported) Entered as Reported by: LATONIA COSTELLO on 10/14/19 1034 Dicyclomine HCl (Dicyclomine HCl) 20 Mg Tablet, 20 MG PO BID Prescribed by: COLLEEN RALPH on 02/03/202007 Finasteride (Finasteride) 5 Mg Tablet, 5 MG PO DAILY, (Reported) Entered as Reported by: LATONIA COSTELLO on 10/14/19 1034 Metformin HCl (Metformin HCl) 1,000 Mg Tablet, 1,000 MG PO DAILY, (Reported) Entered as Reported by: LATONIA COSTELLO on 10/14/19 1034 Ondansetron (Ondansetron Odt) 4 Mg Tab.rapdis, 4 MG PO BID Prescribed by: COLLEEN RALPH on 02/03/202007 Sulfamethoxazole/Trimethoprim (Bactrim Ds Tablet) 1 Each Tablet, 1 EACH PO BID Prescribed by: RAISA MATOS on 11/27/19924 Tamsulosin HCl (Flomax) 0.4 Mg Cap, 0.4 MG PO DAILY Prescribed by: RAISA MATOS on 11/27/19926 Tramadol HCl (Tramadol HCl) 50 Mg Tablet, 1-2 TAB PO Q4H PRN for PAIN-MODERATE (5-7) Prescribed by: RAISA MATOS on 11/27/19 09 Review of Systems Constitutional: no symptoms reported, see HPI Musculoskeletal: joint pain, joint swelling Past Enixsac-Dyxkyn-Oaxwxr Hx Patient Social History Tobacco Use?: No Immunizations Up To Date Tetanus Booster (TDap): Unknown Seasonal Allergies Seasonal Allergies: No Past Medical History Surgeries: Yes (ANKLE/ARM SURGERY TO REMOVE SHRAPNEL, URETEROSCOPY) Respiratory: No Currently Using CPAP: No Currently Using BIPAP: No Cardiac: Yes High Cholesterol Neurological: No Sexually Transmitted Disease: No HIV/AIDS: No Genitourinary: Yes Benign Prostatic Hyperpl, Kidney Stones Gastrointestinal: No Musculoskeletal: No Endocrine: Yes Diabetes, Non-Insulin dep HEENT: Yes (GLASSES) Loss of Vision: Denies Hearing Impairment: Denies Cancer: No Psychosocial: No Integumentary: No Blood Disorders: No Adverse Reaction/Blood Tranf: No (N/A) Physical Exam Vital Signs Vital Signs - First Documented 08/12/22 10:34 Temp 36.6 Pulse 62 Resp 18 B/P (MAP) 163/94 (117) Pulse Ox 98 O2 Delivery Room Air Capillary Refill : Height, Weight, BMI Height: '" Weight: lbs. oz. kg; 33.00 BMI Method: General Appearance: WD/WN, no apparent distress Ankles: right ankle limited range of motion, right ankle pain, right ankle soft tissue tenderness, right ankle swelling, right ankle other (Right ankle, no erythema, warrmth or tenses) Procedures/Interventions Suture Size: 4-0 F5-2 Progress/Results/Core Measures Results/Orders Lab Results Laboratory Tests Test 08/12/22 10:50 Range/Units White Blood Count 9.9 4.3-11.0 10^3/uL Red Blood Count 4.78 4.30-5.52 10^6/uL Hemoglobin 13.7 13.3-17.7 g/dL Hematocrit 41 40-54 % Mean Corpuscular Volume 87 80-99 fL Mean Corpuscular Hemoglobin 29 25-34 pg Mean Corpuscular Hemoglobin Concent 33 32-36 g/dL Red Cell Distribution Width 12.5 10.0-14.5 % Platelet Count 215 130-400 10^3/uL Mean Platelet Volume 10.1 9.0-12.2 fL Immature Granulocyte % (Auto) 0 % Neutrophils (%) (Auto) 64 42-75 % Lymphocytes (%) (Auto) 21 12-44 % Monocytes (%) (Auto) 11 0-12 % Eosinophils (%) (Auto) 3 0-10 % Basophils (%) (Auto) 1 0-10 % Neutrophils # (Auto) 6.4 1.8-7.8 10^3/uL Lymphocytes # (Auto) 2.1 1.0-4.0 10^3/uL Monocytes # (Auto) 1.1 H 0.0-1.0 10^3/uL Eosinophils # (Auto) 0.3 0.0-0.3 10^3/uL Basophils # (Auto) 0.1 0.0-0.1 10^3/uL Immature Granulocyte # (Auto) 0.0 0.0-0.1 10^3/uL Sodium Level 138 135-145 MMOL/L Potassium Level 5.2 H 3.6-5.0 MMOL/L Chloride Level 103 98-107 MMOL/L Carbon Dioxide Level 25 21-32 MMOL/L Anion Gap 10 5-14 MMOL/L Blood Urea Nitrogen 15 7-18 MG/DL Creatinine 0.74 0.60-1.30 MG/DL Estimat Glomerular Filtration Rate 96 BUN/Creatinine Ratio 20 Glucose Level 183 H 70-105 MG/DL Calcium Level 9.4 8.5-10.1 MG/DL My Orders Orders - LIAN OTTO DO Uric Acid (08/12/22 10:43) Cbc With Automated Diff (08/12/22 10:43) Basic Metabolic Panel (08/12/22 10:43) Ankle 3 View Right (08/12/22 10:43) Hydrocodone/Apap 5/325 Tablet (Lortab 5 (08/12/22 10:45) Prednisone Tablet (Deltasone Tablet) (08/12/22 10:45) Medications Given in ED Current Medications Medications Dose Ordered Sig/Olivia Route Start Time Stop Time Status Last Admin Dose Admin Acetaminophen/ Hydrocodone Bitart 1 ea ONCE ONCE PO 08/12/22 10:45 08/12/22 10:46 DC 08/12/22 10:57 1 EA Prednisone 50 mg ONCE ONCE PO 08/12/22 10:45 08/12/22 10:46 DC 08/12/22 10:57 50 MG Vital Signs/I&O 08/12/22 10:34 Temp 36.6 Pulse 62 Resp 18 B/P (MAP) 163/94 (117) Pulse Ox 98 O2 Delivery Room Air Departure Communication (Admissions) XR R ankle: Negative Concern for gouty arthritis. UA is a send out. Recommendations are supportive care watchful waiting and PCP followup. Impression Primary Impression: Acute right ankle pain Disposition: 01 HOME, SELF-CARE Condition: Stable Departure-Patient Inst. Decision time for Depature: 11:46 Referrals: NO,LOCAL PHYSICIAN (PCP/Family) Primary Care Physician Patient Instructions: Joint Pain Add. Discharge Instructions: You were evaluated in the ED for R ankle pain. Please use walker, and avoid unnecessary weight bearing. Follow up with a local PCP for re-evaluation. All discharge instructions reviewed with patient and/or family. Voiced understanding. Scripts Hydrocodone/Acetaminophen (Hydrocodone-Acetamin 5-325 mg) 5 Mg-325 Mg Tablet 1 TAB PO Q4H PRN for PAIN-MODERATE (5-7), #12 TAB Prov: LIAN OTTO DO 08/12/22 Prednisone (Prednisone) 20 Mg Tab 40 MG PO DAILY, #6 TAB 0 Refills Prov: LIAN OTTO DO 08/12/22 LIAN OTTO DO Aug 12, 2022 10:39
[2022-08-12] MEDS ORDERED: HYDROcodone/APAP 5 MG/325 MG (LORTAB) TAB PO ONE (10:45)
[2022-08-12] MEDS ORDERED: predniSONE 20 MG TAB PO ONE (10:45)
[2022-08-12 11:00] LABS: BASOPHILS # (AUTO) 0.1 10^3/uL (0.0-0.1); BASOPHILS % (AUTO) 1 % (0-10); EOSINOPHILS # (AUTO) 0.3 10^3/uL (0.0-0.3); EOSINOPHILS % (AUTO) 3 % (0-10); HEMATOCRIT 41 % (40-54); HEMOGLOBIN 13.7 g/dL (13.3-17.7); LYMPHOCYTES # (AUTO) 2.1 10^3/uL (1.0-4.0); LYMPHOCYTES % (AUTO) 21 % (12-44); MEAN CORPUSCULAR HEMOGLOBIN 29 pg (25-34); MEAN CORPUSCULAR HGB CONC 33 g/dL (32-36); MEAN CORPUSCULAR VOLUME 87 fL (80-99); MEAN PLATELET VOLUME 10.1 fL (9.0-12.2); MONOCYTES # (AUTO) 1.1 10^3/uL (0.0-1.0); MONOCYTES % (AUTO) 11 % (0-12); NEUTROPHILS # (AUTO) 6.4 10^3/uL (1.8-7.8); NEUTROPHILS % (AUTO) 64 % (42-75); PLATELET COUNT 215 10^3/uL (130-400); WHITE BLOOD COUNT 9.9 10^3/uL (4.3-11.0)
[2022-08-12 11:18] LABS: POTASSIUM 5.2 MMOL/L (3.6-5.0)
[2022-08-12 11:19] LABS: CALCIUM 9.4 MG/DL (8.5-10.1); CREATININE SERUM 0.74 MG/DL (0.60-1.30)
--- NOTE | 2022-08-12 11:19 | Diagnostic Imaging Report ---
Indication: Right ankle pain 3 views of the right ankle show no fracture, dislocation or other acute abnormalities. IMPRESSION: Negative right ankle Dictated by: Dictated on workstation # [id number]
[2022-08-12] MEDS ORDERED: PRD20T PO (11:50)
[2022-08-12] MEDS ORDERED: ACHD5005 PO (11:50)
== END 2022-08-12 11:55 | disposition home or self-care (01) ==
LOC: EDUNIT# 10:29 → ER FS 10:30
DX: M25.571 Pain in right ankle and joints of right foot (principal)
CPT/HCPCS: 36415; 73610; 80048; 84550; 85025